=== PATIENT | male | born 1965 | race African-American/Black ===

== ENCOUNTER 2018-03-14 03:47 | Emergency (ER) | payer MEDICARE ==
[~2018-03-14] VITALS: Ht 170.2 cm; Wt 59.0 kg
--- OUTSIDE RECORDS SUMMARY | 2018-03-14 03:50 | XMS REPORT ---
Author Author [facility] Address Unknown Phone Unavailable Care Team Providers Care Fusion Operator Name Role Phone Unavailable Unavailable Problems This patient has no known problems. Allergies, Adverse Reactions, Alerts This patient has no known allergies or adverse reactions. Medications This patient has no known medications. Encounters Start Date/Time End Date/Time Encounter Type Admission Type Attending [facility] Care Department Encounter ID 2018-01-25 00:00:00 2018-01-25 00:00:00 Outpatient [facility] [id number] 2018-01-18 00:00:00 2018-01-18 00:00:00 Outpatient [facility] [id number] 2017-11-02 00:00:00 2017-11-02 00:00:00 Outpatient [facility] [id number] 2017-10-19 00:00:00 2017-10-19 00:00:00 Outpatient [facility] [id number] 2017-10-19 00:00:00 2017-10-19 00:00:00 Outpatient [facility] [id number] 2017-10-19 00:00:00 2017-10-19 00:00:00 Outpatient [facility] [id number] 2017-07-15 00:00:00 2017-07-15 00:00:00 Outpatient [facility] [id number] 2017-04-27 00:00:00 2017-04-27 00:00:00 Outpatient [facility] [id number] 2017-04-26 14:39:34 2017-04-26 14:39:34 Outpatient [facility] [id number] 2017-04-23 00:00:00 2017-04-23 00:00:00 Outpatient [facility] [id number] 2017-04-15 00:00:00 2017-04-15 00:00:00 Outpatient [facility] [id number] 2017-04-06 00:00:00 2017-04-06 00:00:00 Outpatient [facility] [id number] 2017-04-06 00:00:00 2017-04-06 00:00:00 Outpatient [facility] [id number] 2017-03-18 15:26:21 2017-03-18 15:26:21 Outpatient [facility] [id number] 2017-02-04 09:49:55 2017-02-04 09:49:55 Outpatient [facility] [id number] 2017-01-15 12:49:09 2017-01-15 12:49:09 Outpatient [facility] [id number]
== END 2018-03-14 04:41 | disposition home or self-care (01) ==
LOC: FSED 03:47
DX: M79.605 Pain in left leg (principal); M79.604 Pain in right leg; E10.40 Type 1 diabetes mellitus with diabetic neuropathy, unspecified; I10 Essential (primary) hypertension; F17.210 Nicotine dependence, cigarettes, uncomplicated
CPT/HCPCS: 99282